=== PATIENT | female | born 1945 | race African-American/Black ===

== ENCOUNTER 2017-11-04 09:40 | Outpatient (CLI) | payer MEDICARE, BC | END 2017-11-04 09:41 | disposition home or self-care (01) | LOC: BICMAMMO 09:40 | PROVIDERS: ATTEND Family Medicine | DX: Z12.31 Encounter for screening mammogram for malignant neoplasm of breast (principal); Z80.3 Family history of malignant neoplasm of breast | CPT/HCPCS: 77063; 77067; G0202 ==

== ENCOUNTER 2018-11-14 10:26 | Outpatient (CLI) | payer MEDICARE, BC ==
--- NOTE | 2018-11-14 12:49 | BD ---
BONE DENSITOMETRY USING DEXA: Date: 11/14/18 HISTORY: Postmenopausal screening for osteoporosis. FINDINGS: Lumbar Spine: BMD (g/cm2) L1 0.975 T-Score: -0.1 Z-Score: 1.9 L2 1.086 T-Score: 0.5 Z-Score: 2.7 L3 1.181 T-Score: 0.9 Z-Score: 3.2 L4 1.160 T-Score: 0.9 Z-Score: 3.3 L1-L4 1.102 T-Score: 0.5 Z-Score: 2.7 Femoral Neck: 0.824 T-Score: -0.2 Z-Score: 1.7 Total Femur: 0.964 T-Score: 0.2 Z-Score: 1.8 IMPRESSION: Normal bone mineral density. No evidence of osteopenia/osteoporosis. POS: OFF
== END 2018-11-14 10:27 | disposition home or self-care (01) ==
LOC: BICMAMMO 10:26
PROVIDERS: ATTEND Family Medicine
DX: Z12.31 Encounter for screening mammogram for malignant neoplasm of breast (principal); Z13.820 Encounter for screening for osteoporosis; Z01.419 Encounter for gynecological examination (general) (routine) without abnormal findings; E89.40 Asymptomatic postprocedural ovarian failure; Z80.3 Family history of malignant neoplasm of breast
CPT/HCPCS: 77063; 77067; 77080

== ENCOUNTER 2019-11-15 09:45 | Outpatient (CLI) | payer MEDICARE ==
--- NOTE | 2019-11-15 10:33 | MMO ---
Bilateral MAMMO Bilat Screen [facility]. CLINICAL HISTORY: Patient is 74 years old and is seen for screening. The patient has no family history of breast cancer. The patient has no personal history of cancer. VIEWS: The views performed were: bilateral craniocaudal with tomosynthesis and bilateral mediolateral oblique with tomosynthesis. FILMS COMPARED: The present examination has been compared to prior imaging studies performed at [facility] on 11/04/2017 and 11/14/2018, and at [facility] on 04/24/2015 and 07/13/2016. This study has been interpreted with the assistance of computer-aided detection. MAMMOGRAM FINDINGS: The breasts are heterogeneously dense, which could obscure a lesion on mammography. There are stable benign appearing calcifications seen in both breasts. There are also vascular calcifications. There are no suspicious masses, suspicious calcifications, or new areas of architectural distortion. IMPRESSION: THERE IS NO MAMMOGRAPHIC EVIDENCE OF MALIGNANCY. A ROUTINE FOLLOW-UP MAMMOGRAM IN 1 YEAR IS RECOMMENDED. THE RESULTS OF THIS EXAM WERE SENT TO THE PATIENT. ACR BI-RADS Category 2 - Benign finding MAMMOGRAPHY NOTE: 1. A negative mammogram report should not delay a biopsy if a dominant of clinically suspicious mass is present. 2. Approximately 10% to 15% of breast cancers are not detected by mammography. 3. Adenosis and dense breasts may obscure an underlying neoplasm. Reported by: JIM ESPINOZA MD Electonically Signed: [id number]
== END 2019-11-15 09:46 | disposition home or self-care (01) ==
LOC: BICMAMMO 09:45
PROVIDERS: ATTEND Family Medicine
DX: Z12.31 Encounter for screening mammogram for malignant neoplasm of breast (principal)
CPT/HCPCS: 77063; 77067

== ENCOUNTER 2020-11-20 10:00 | Outpatient (CLI) | payer MEDICARE ==
--- NOTE | 2020-11-20 10:47 | BD ---
EXAM: DEXA bone density examination HISTORY: Osteoporosis screening COMPARISON: November 14, 2018 FINDINGS: L1--bone mineral density 1.046 g/sq cm; T score 0.5. Z score 2.6 L2--bone mineral density 1.150 g/sq cm; T score 1.1; Z score 3.5 L3--bone mineral density 1.335 g/sq cm; T score 2.3; Z score 4.8 L4--bone mineral density 1.122 g/sq cm; T score 0.6, Z score 3.1 Total L1-L4--bone mineral density 1.175 g/sq cm; T score 1.2, Z score 3.5 Left femoral neck--bone mineral density0.835; T score -0.1, Z score 1.9 Total proximal left femur--bone mineral density 0.983; T score 0.3, Z score 2.1 IMPRESSION: Based on the WHO criteria, the patient's bone mineral density is consideredNormal. The p atient is at low risk for fracture.
--- NOTE | 2020-11-20 12:27 | MMO ---
Bilateral MAMMO Bilat Screen [facility]. CLINICAL HISTORY: Patient is 75 years old and is seen for screening. The patient has no family history of breast cancer. The patient has no personal history of cancer. VIEWS: The views performed were: bilateral craniocaudal with tomosynthesis and bilateral mediolateral oblique with tomosynthesis. FILMS COMPARED: The present examination has been compared to prior imaging studies performed at [facility] on 11/04/2017, 11/14/2018 and 11/15/2019, and at [facility] on 07/13/2016. This study has been interpreted with the assistance of computer-aided detection. MAMMOGRAM FINDINGS: The breasts are heterogeneously dense, which could obscure a lesion on mammography. There are stable benign appearing calcifications seen in both breasts. There are no suspicious masses, suspicious calcifications, or new areas of architectural distortion. IMPRESSION: THERE IS NO MAMMOGRAPHIC EVIDENCE OF MALIGNANCY. A ROUTINE FOLLOW-UP MAMMOGRAM IN 1 YEAR IS RECOMMENDED. THE RESULTS OF THIS EXAM WERE SENT TO THE PATIENT. ACR BI-RADS Category 2 - Benign finding MAMMOGRAPHY NOTE: 1. A negative mammogram report should not delay a biopsy if a dominant of clinically suspicious mass is present. 2. Approximately 10% to 15% of breast cancers are not detected by mammography. 3. Adenosis and dense breasts may obscure an underlying neoplasm. Reported by: RUBEN GANDARA MD Electonically Signed: [id number]
== END 2020-11-20 10:01 | disposition home or self-care (01) ==
LOC: BICMAMMO 10:00
PROVIDERS: ATTEND Family Medicine
DX: Z12.31 Encounter for screening mammogram for malignant neoplasm of breast (principal); Z13.820 Encounter for screening for osteoporosis; E89.40 Asymptomatic postprocedural ovarian failure
CPT/HCPCS: 77063; 77067; 77080

== ENCOUNTER 2021-11-25 10:22 | Outpatient (CLI) | payer MEDICARE | END 2021-11-25 10:23 | disposition home or self-care (01) | LOC: BICMAMMO 10:22 | PROVIDERS: ATTEND Family Medicine | DX: Z12.31 Encounter for screening mammogram for malignant neoplasm of breast (principal); Z80.3 Family history of malignant neoplasm of breast | CPT/HCPCS: 77063; 77067 ==

== ENCOUNTER 2023-01-18 09:17 | Outpatient (CLI) | payer MEDICARE | END 2023-01-18 09:18 | disposition home or self-care (01) | LOC: BICMAMMO 09:17 | PROVIDERS: ATTEND Family Medicine | DX: Z12.31 Encounter for screening mammogram for malignant neoplasm of breast (principal); Z13.820 Encounter for screening for osteoporosis; E89.40 Asymptomatic postprocedural ovarian failure; Z80.3 Family history of malignant neoplasm of breast | CPT/HCPCS: 77063; 77067; 77080 ==